=== PATIENT | male | born 1945 | race African-American/Black ===

== ENCOUNTER 2017-02-26 02:58 | Emergency (ER) | payer OTHER ==
[~2017-02-26] VITALS: Ht 185.4 cm; Wt 113.6 kg
[2017-02-26] MEDS ORDERED: NORCO 5/3251 TABLET PO (08:12)
[2017-02-26] MEDS ORDERED: SKELAXIN800 MG PO (08:12)
[2017-02-26] MEDS ORDERED: PREDNISONE50 MG PO (08:52)
[2017-02-26 09:34] VITALS: BP 180/79
== END 2017-02-26 09:36 | disposition home or self-care (01) ==
LOC: EME 02:58
DX: M51.16 Intervertebral disc disorders with radiculopathy, lumbar region (principal)
CPT/HCPCS: 72100; 99281; 99284; J3010; J7512